=== PATIENT | female | born 2000 | race African-American/Black ===

== ENCOUNTER 2021-04-29 14:05 | Emergency (ER) | payer OTHER, SELFPAY ==
[2021-04-29 14:14] VITALS: BP 104/67; PULSE 84; RESP 14; TEMP 36.7; O2SAT 100
--- NOTE | 2021-04-29 14:31 | ED.URI ---
HPI - URI/Sore Throat General Chief Complaint: Upper Respiratory Infection Stated Complaint: headache cough achey Time Seen by Provider: 04/29/21 14:25 Source: patient Mode of arrival: ambulatory Limitations: no limitations History of Present Illness HPI Narrative: Patient is a 20-year-old female who ambulated into the [facility]. Patient states on she developed a headache that lasted 1 to 2 days. Patient states she has chest congestion, sore throat, dry cough and body aches. Patient has not been using over the any nybf-aga-yvnaych medications. She had a negative COVID-19 test yesterday. She does have her Covid vaccine. MD elicited complaint: sore throat Related Data Home Medications Medication Instructions Recorded Confirmed No Home Medications 04/29/21 04/29/21 Allergies Allergy/AdvReac Type Severity Reaction Status Date / Time No Known Allergies Allergy Verified 04/29/21 14:26 Review of Systems Review of Systems: CONSTITUTIONAL: Denies body aches, fever, chills, or sweats. EYES: Denies visual changes, redness, or discharge. ENT: Denies rhinorrhea,+ congestion, +sore throat, or otalgia. CARDIOVASCULAR: Denies chest pain, palpitations, or edema. RESPIRATORY: Denies cough or dyspnea. GASTROINTESTINAL: Denies abdominal pain, nausea, vomiting, or diarrhea. GENITOURINARY: Denies dysuria or hematuria. SKIN: Denies rash, itching, or wounds. MUSCULOSKELETAL: Denies back pain, joint pain, or myalgia. NEUROLOGIC: + headache, denies numbness, tingling, or weakness. PSYCH: Denies depression or anxiety. All systems reviewed & are unremarkable except as noted in HPI and below PMFSH Comments At time of signature, I have reviewed and agree with nursing past medical, surgical, social and family history unless otherwise noted. Please see nursing chart for further information. There is no relevant family history pertinent to the presenting complaint Exam Narrative: GENERAL: Well-appearing, well-nourished, and in no acute distress. HEAD: Normocephalic, atraumatic. EYES: EOMI. No redness or drainage. Conjunctivae normal. ENT: Mucous membranes pink and moist. Nasal membranes mildly erythemic . TMs normal bilaterally. Posterior pharynx is erythemic with mild edema. Moderate clear postnasal drainage is noted. Uvula midline. NECK: Normal AROM. Supple. No lymphadenopathy. CHEST: No respiratory distress. Clear to auscultation. MUSCULOSKELETAL: No bony tenderness. EXTREMITIES: Normal range of motion. No edema. SKIN: Warm, dry, no rash. Capillary refill normal. Normal skin turgor. NEURO: No focal deficits. Alert and oriented x3. Gait steady. PSYCH: Normal affect. No signs of depression or anxiety. Course Vital Signs Vital signs: Vital Signs Temperature 36.7 C 04/29/21 14:14 Pulse Rate 84 04/29/21 14:14 Respiratory Rate 14 04/29/21 14:14 Blood Pressure 104/67 04/29/21 14:14 Pulse Oximetry 100 04/29/21 14:14 Temperature 36.7 C 04/29/21 14:14 Pulse Rate 84 04/29/21 14:14 Respiratory Rate 14 04/29/21 14:14 Blood Pressure 104/67 04/29/21 14:14 Pulse Oximetry 100 04/29/21 14:14 Reviewed. Pt has been instructed to follow up with his PCP regarding his elevated blood pressure today. MDM - URI/Sore Throat MDM Narrative Medical decision making narrative: Rapid strep is negative. Throat culture will be sent to lab. Influenza A/B are negative. Patient had a negative rapid Covid test yesterday that was negative. Will be treated as a viral upper respiratory infection. Patient to increase her fluids. Patient may use Chloraseptic [id number] sore throat spray. Patient may use upgs-zeu-ojycjur cold medications as prescribed Differential Diagnosis Differential diagnosis: Likely upper respiratory infection, otitis media, influenza and pharyngitis Medical Records Attestation: I reviewed the patient's medical records. Lab Data Attestation: I reviewed the patient's lab result
== END 2021-04-29 14:40 | disposition home or self-care (01) ==
PROVIDERS: Emergency Provider Nurse Practitioner Family
DX: J06.9 Acute upper respiratory infection, unspecified (principal)
CPT/HCPCS: 87081; 87804; 87880; 99213; G0463